=== PATIENT | male | born 1960 | race American Indian/Alaskan Native ===

== ENCOUNTER 2016-11-05 07:54 | Emergency (ER) | payer BC ==
--- NOTE | 2016-11-05 08:14 | Emergency Department Report ---
HPI - General Chief Complaint: Abdominal Pain Time Seen by Provider: 11/05/16 08:08 - HPI HPI: This is a 56-year-old -Irish male presents to the emergency department , dropped off by his son to be seen, with complaint of right lower quadrant abdominal pain that began this morning. It is associated with nausea, vomiting and subjective fever with sweats. He did not take any of her symptoms prior to presentation. He denies any problems with bowel or bladder. He denies any past medical history. He is not on any current medications. He does not have a primary care doctor at this time. No recent travel or sick contacts at home. He denies any surgical history. He has concern as he says that he has been working in the [facility] area where there has been issues with tainted water , and the patient has been drinking water. ED Past Medical Hx - Past Medical History Previous Medical History?: No - Surgical History Additional Surgical History: RIGHT HIP - Social History Smoking Status: Never Smoker Substance Use Type: Alcohol - Medications Home Medications: Home Medications Medication Instructions Recorded Confirmed Last Taken Type HYDROcodone/APAP 5-325 [[place] 1 each PO Q6HR PRN #8 tablet 11/05/16 Unknown Rx 5/325] ED Review of Systems ROS: Stated complaint: ABD PAIN Other details as noted in HPI Comment: All other systems reviewed and negative Constitutional: diaphoresis. denies: chills Eyes: denies: eye pain, eye discharge, vision change ENT: denies: ear pain, throat pain Respiratory: denies: cough, shortness of breath, wheezing Cardiovascular: denies: chest pain, palpitations Gastrointestinal: abdominal pain, nausea, vomiting Genitourinary: denies: urgency, dysuria Musculoskeletal: denies: back pain, joint swelling, arthralgia Skin: denies: rash, lesions Neurological: denies: headache, weakness, paresthesias Physical Exam - Physical Exam Vital Signs: Vital Signs 11/05/16 08:02 Temperature 98.3 F Pulse Rate 45 L Respiratory 18 Rate Blood Pressure 169/91 O2 Sat by Pulse 100 Oximetry Physical Exam: GENERAL: The patient is well-developed well-nourished. HEENT: Normocephalic. Atraumatic. Extraocular motions are intact. Patient has moist mucous membranes. Pupils equal reactive to light bilaterally. NECK: Supple. Trachea is midline. CHEST/LUNGS: Clear to auscultation. There is no respiratory distress noted. HEART/CARDIOVASCULAR: Regular. There is bradycardia. There is no gallop rub or murmur. ABDOMEN: Abdomen is soft. Right lower quadrant tenderness to palpation. No guarding or rebound tenderness. No peritoneal signs. Patient has normal bowel sounds. There is no abdominal distention. SKIN: There is no rash. There is no edema. There is no diaphoresis. NEURO: The patient is awake, alert, and oriented. The patient is cooperative. The patient has no focal neurologic deficits. The patient has normal speech. MUSCULOSKELETAL: There is no tenderness or deformity. There is no limitation range of motion. There is no evidence of acute injury. ED Course Vital Signs 11/05/16 08:02 Temperature 98.3 F Pulse Rate 45 L Respiratory 18 Rate Blood Pressure 169/91 O2 Sat by Pulse 100 Oximetry ED Medical Decision Making - Lab Data Result diagrams: 11/05/16 08:26 11/05/16 08:26 - EKG Data -: EKG Interpreted by [facility] EKG shows normal: sinus rhythm, axis, intervals, QRS complexes, ST-T waves Rate: bradycardia (48 bpm) - EKG Data When compared to previous EKG there are: previous EKG unavailable Interpretation: other (sinus pain cardiac, no ST elevation MO) - Radiology Data Radiology results: report reviewed CT of the abdomen and pelvis with contrast shows a recent passenger of a 7 mm right ureteral calculus. Moderate residual right hydronephrosis and hydroureter. Bilateral nonobstructive renal calculi and benign renal cyst. No appendicitis. Small bilateral fat-containing inguinal hernias. - Medical Decision Making 56-year-old male presents to the emergency department with complaint of right lower quadrant abdominal pain along with some nausea and vomiting that started this morning. His labs are unremarkable and do not show any etiology of his symptoms. It is reproducible to palpation but there are no peritoneal signs. Abdominal x-ray did not show any acute process. However the CT of the abdomen and pelvis shows a 7 mm stone that is just distal to the UVJ and within the bladder appears consistent with a recent passage of this stone. This correlates with the patient's abdominal discomfort, however there is no urinary tract infection or hematuria seen. The patient is feeling improved after some fluid and pain medication. He was given a strainer to strain his urine for collection of the calculus. He will be discharged home to follow-up with a primary care physician as well as a urologist. He will return to the ER with any worsening of symptoms or any acute distress. Patient's vital signs were stable there is any worsening including being afebrile but there was some bradycardia. Patient would go down into the mid 40s and low 50s. However from a standpoint of bradycardia he is asymptomatic. The patient says that he is relatively active and often will have a low heart rate. - Differential Diagnosis renal colic, nephrolithiasis, colitis, appendicitis, diverticulitis Critical Care Time: No Critical care attestation.: If time is entered above; I have spent that time in minutes in the direct care of this critically ill patient, excluding procedure time. ED Disposition Clinical Impression: Renal colic on right side, Kidney stone on right side Hypertension Qualifiers: Hypertension type: essential hypertension Qualified Code(s): I10 - Essential ( primary) hypertension Disposition: - TO HOME OR SELFCARE Is pt being admited?: No Condition: Stable Instructions: Renal Colic (ED), Hypertension (ED) Additional Instructions: Please follow-up with your primary care doctor in the next few days. I have given a referral for a local urologist in case she would like to discuss the kidney stones. Return to the emergency Department with any worsening of her symptoms or any acute distress. You've been prescribed a medication that is sedating. Therefore this medication cannot be mixed with alcohol, or taken prior to driving, working, or being responsible for children. Prescriptions: HYDROcodone/APAP 5-325 [[place] 5/325] 1 each PO Q6HR PRN #8 tablet PRN Reason: Pain Referrals: TASHA JALLOH MD [Primary Care Provider] - 3-5 Days ADRIANA CRAWFORD MD [Staff Physician] - 3-5 Days Time of Disposition: 10:22
[2016-11-05] MEDS ORDERED: MORPHINE IV ONE ×2 (08:28→09:39)
[2016-11-05] MEDS ORDERED: NACL 0.9% 1000 ML 1,000 ML IV ONE (08:28)
[2016-11-05] MEDS ORDERED: ZOFRAN IV ONE (08:28)
[2016-11-05 09:00] LABS: Alanine Aminotransferase 30 units/L (7-56); Albumin 4.1 g/dL (3.9-5); Alkaline Phosphatase 75 units/L (35-129); Anion Gap 18 mmol/L; BUN/Creatinine Ratio 11.66; Blood Urea Nitrogen 14 mg/dL (9-20); Calcium 9.5 mg/dL (8.4-10.2); Carbon Dioxide 26 mmol/L (22-30); Glucose 144 mg/dL (75-100); Lipase 40 units/L (13-60); Potassium 4.2 mmol/L (3.6-5.0); Sodium 144 mmol/L (137-145); Total Protein 8.2 g/dL (6.3-8.2)
[2016-11-05 09:03] LABS: Basophils % (Auto) 0.4 % (0.0-1.8); Eosinophils % (Auto) 0.6 % (0.0-4.3); Hematocrit 43.9 % (35.5-45.6); Hemoglobin 14.3 gm/dl (11.8-15.2); Mean Corpuscular HGB Conc 33 % (32-34); Mean Corpuscular Hemoglobin 31 pg (28-32); Mean Corpuscular Volume 94 fl (84-94); Platelet Count 184 K/mm3 (140-440); White Blood Count 10.6 K/mm3 (4.5-11.0)
[2016-11-05 09:29] LABS: Bilirubin,Urine NEG (Negative); Blood,Urine NEG (Negative); Ketones,Urine NEG (Negative); Leukocyte Esterase,Urine NEG (Negative); Mucus,Urine 2+ /HPF; Nitrite,Urine NEG (Negative); Protein,Urine <15 mg/dL mg/dL (Negative); Urobilinogen,Urine < 2.0 mg/dL (<2.0)
--- NOTE | 2016-11-05 09:44 | Cat Scan Report ---
CT ABDOMEN AND PELVIS WITH CONTRAST: 11/05/16 07:54:00 CLINICAL: Right lower quadrant abdominal pain. COMPARISON: None. TECHNIQUE: Volumetric acquisition and 1.25 millimeter scan reconstructions after the uneventful intravenous injection of 100 cc Omnipaque 300. Consent was obtained prior to the administration of contrast. Oral contrast was not given. FINDINGS: Abdomen: Right perinephric stranding, moderate right hydronephrosis and right hydroureter. The right ureter is dilated to the urinary bladder there is a 7 mm calculus in the urinary bladder near the right UVJ. At least five nonobstructive right renal calculi with the largest in the upper pole measuring 1 cm. A 5 mm left upper pole nonobstructive calculus. The left renal collecting system and ureter are nondilated. Bilateral renal cysts. The largest is in the upper pole the left kidney and measures 4.9 cm. Normal liver, bile ducts and gallbladder. Normal stomach, duodenum, pancreas and spleen. Aortic ectasia and tortuosity. The inferior vena cava is normal. The small bowel is normal.Normal ascending, transverse and descending colon. Normal appendix. No mass, lymphadenopathy or ascites.No pneumoperitoneum. Pelvis: The urinary bladder is small with a relatively thick wall. A 7 mm calculus is to the right of midline near the right UVJ. The prostate is enlarged and measures approximately 5.0 x 4.1 cm. Normal seminal vesicles. Normal rectum and sigmoid colon. . Small bilateral fat containing inguinal hernias. Bone windows demonstrate no bone lesion. IMPRESSION:1. Recent passage of a 7 mm right ureteral calculus. Moderate residual right hydronephrosis and hydroureter. 2. Bilateral nonobstructive renal calculi and benign renal cysts. 3. No appendicitis. 4. Small bilateral fat containing inguinal hernias.
--- NOTE | 2016-11-05 10:31 | XRay Report ---
ABDOMEN TWO VIEWS: 11/05/16 08:28:00 CLINICAL: Vomiting. COMPARISON:None. FINDINGS: Supine upright views demonstrate a normal bowel gas pattern. Several calculi of the right kidney. Gas pattern is normal with moderate stool in the colon. The stomach is mildly distended with air. No mass. The bones and soft tissues are normal. IMPRESSION: Right renal calculi..
[2016-11-05 10:45] VITALS: BP 144/72
== END 2016-11-05 10:46 | disposition home or self-care (01) ==
LOC: ED 07:54
DX: N20.0 Calculus of kidney (principal); N23 Unspecified renal colic; I10 Essential (primary) hypertension
CPT/HCPCS: 36415; 74020; 74177; 80053; 81001; 83690; 85025; 93005; 93010; 96361; 96374; 96375; 96376; 99284; J2270; J2405; J7030; Q9967